=== PATIENT | male | born 1960 | race Caucasian/White ===

== ENCOUNTER 2018-12-09 08:46 | Day surgery (SDC) | payer OTHER, SELFPAY ==
[2018-11-25 12:16] VITALS: BMI 30.7
[2018-12-09] VITALS (10 sets, daily range): BP systolic 111–142; BP diastolic 86–99; PULSE 68–88; RESP 11–18; TEMP 36.2–36.6; O2SAT 95–99; BMI 29.9
[2018-12-09] MEDS: LACTATED RINGERS 1,000 ML 100 ML IV (09:42)
--- NOTE | 2018-12-09 10:38 | PM.PREOP ---
Pre-operative Note Interval Note History & Physical reviewed/Exam performed by Physician: Yes Changes to H&P: No H&P completed within 30 days and has changed as indicated here:: See office note from for history and physical.
[2018-12-09] MEDS: CEFAZOLIN 2 GM/100 ML FROZ.PIGGY IV (10:43)
--- NOTE | 2018-12-09 11:08 | SUR.OPER ---
Supine on padded OR bed, head on pillow, arms secured on padded arm boards at <90 degrees abduction, legs uncrossed, safety belt at thigh, tape over blanket over lower legs.
[2018-12-09] MEDS: BUPIVACAINE 0.5% (PF) VIAL 30 ML INJ (11:14)
--- NOTE | 2018-12-09 11:43 | PM.OP.1 ---
Operative Date/Time/Diagnoses Date of procedure: 12/09/18 Time of procedure: 11:32 Pre-op diagnosis: Incarcerated umbilical hernia Post-op diagnosis: same Procedure & Clinicians Procedure: Repair of umbilical hernia Same procedure as scheduled: Yes Indications: Hernia with overlying attenuated skin Surgeon: Yohannes Bro Click Yes if Unassisted: Yes Anesthesia Type: General Operative Notes Findings: Omentum incarcerated into to the hernia Closure Type: primary Specimen(s): none sent Prosthetic devices, grafts, tissues, transplants, or devices: None Estimated Blood Loss (mL): 5 Blood products transfused: none Procedure in detail: The patient was placed supine on the operating room table and underwent general LMA anesthesia. He was prepped and draped in the usual fashion. Local anesthetic was infiltrated and an incision made beneath the umbilicus.was carried down to the level the fascia. The hernia was identified and from surrounding structures. It was entered under the skin of the umbilicus. Contain fat. Appeared to be omentum. I opened the sac and removed it and attempted to reduce the omentum but the opening was too small. Therefore using cautery I resected the fat. The fascial edges of the defect which was quite small were cleared of other tissues. Once the fascia was exposed I a close this small defect which measured about a cm with [id number] 0 Ethibond suture. The umbilicus was tacked down to the fascia using interrupted 3 0 Vicryl. The subcu was closed with interrupted 3 0 Vicryl. Skin was closed running 4 0 Vicryl subcuticular stitch and Steri-Strips. Dressing was applied and the patient was awakened, extubated and taken to recovery area in good condition. Complications: none Condition: stable Disposition: PACU Plan for aftercare: Follow-up in office
[2018-12-09] MEDS: fentaNYL 100 MCG/2 ML INJ 50 MCG IV ×2 (11:45→11:55)
[2018-12-09] MEDS: OXYCODONE/ACETAMINOPHEN 5/325 TABLET 1 TAB PO (12:13)
== END 2018-12-09 13:19 | disposition home or self-care (01) ==
PROVIDERS: PCP Family Medicine; Visit Provider Specialist
PROC: (CPT 49587; principal; 2018-12-09 10:45)
DX: K42.0 Umbilical hernia with obstruction, without gangrene (principal)
CPT/HCPCS: 49587; J0690; J1100; J2250; J2405; J2704; J3010